=== PATIENT | male | born 2005 | race Two or more races ===

== ENCOUNTER 2024-12-07 22:48 | Emergency (ER) | payer MEDICAID, OTHER ==
[~2024-12-07] VITALS: Ht 167.6 cm; Wt 85.0 kg
[2024-12-08 00:27] VITALS: BP 117/77; PULSE 76; RESP 18; TEMP 98; O2SAT 98
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
== END 2024-12-08 01:03 | disposition home or self-care (01) ==
LOC: ER 22:48
DX: M79.645 Pain in left finger(s) (principal); Z48.00 Encounter for change or removal of nonsurgical wound dressing